=== PATIENT | female | born 1945 | race Hispanic/Latino ===

== ENCOUNTER 2022-06-28 11:12 | Emergency (ER) | payer MEDICARE, OTHER ==
[~2022-06-28] VITALS: Ht 142.2 cm; Wt 79.4 kg
[~2022-06-28 11:12] MED LIST: LEVAQUIN500 MG PO
[2022-06-28] MEDS ORDERED: DIPHENHYDRAMINE HCL INJ 50 MG/ML VIAL IV PRN (11:45)
[2022-06-28 12:04] LABS: BASOPHILS % 0.7 % (0.0-1.0); EOSINOPHILS # (AUTO) 0.1 (0.0-0.4); EOSINOPHILS % 1.7 % (0.0-6.0); HEMATOCRIT 29.8 % (34.2-44.1); HEMOGLOBIN 9.7 g/dL (12.0-16.0); LYMPHOCYTES # (AUTO) 1.5 (1.0-3.2); MEAN CORPUSCULAR HEMOGLOBIN 31.7 pg (28-32); MEAN CORPUSCULAR HGB CONC 32.6 g/dL (31-35); MEAN CORPUSCULAR VOLUME 97.4 fL (81-99); MONOCYTES # (AUTO) 0.4 (0.2-0.8); MONOCYTES % 6.4 % (4.4-11.3); NEUTROPHILS # (AUTO) 3.7 (2.1-6.9); NEUTROPHILS % 62.9 % (38.7-80.0); PLATELET COUNT 167 x10e3/uL (140-360); RED BLOOD COUNT 3.06 x10e6/uL (3.6-5.1); RED CELL DISTRIBUTION WIDTH 18.5 % (11.7-14.4)
[2022-06-28 12:20] LABS: ALBUMIN 2.9 g/dL (3.5-5.0); ALBUMIN/GLOBULIN RATIO 0.9 (0.8-2.0); ANION GAP 19.4 mmol/L (8-16); CALCIUM 8.3 mg/dL (8.4-10.2); CREATININE, SERUM 3.86 mg/dL (0.57-1.11); POTASSIUM 4.4 mmol/L (3.5-5.1)
== END 2022-06-28 16:00 | disposition home or self-care (01) ==
LOC: ER 11:29
DX: G24.01 Drug induced subacute dyskinesia (principal); I10 Essential (primary) hypertension; N32.81 Overactive bladder; Z20.822 Contact with and (suspected) exposure to COVID-19; Z96.651 Presence of right artificial knee joint
CPT/HCPCS: 36415; 70450; 80053; 83605; 84484; 85025; 87040; 93005; 99284; J1200; U0002

== ENCOUNTER 2022-07-18 10:59 | Inpatient (IN) | payer MEDICARE ==
[2022-07-18] VITALS (23 sets, daily range): BP systolic 116–172; BP diastolic 68–89
[~2022-07-18] VITALS: Ht 142.2 cm; Wt 46.8 kg
[2022-07-18 11:21] LABS: BASOPHILS % 0.1 % (0.0-1.0); HEMATOCRIT 26.8 % (34.2-44.1); HEMOGLOBIN 8.5 g/dL (12.0-16.0); LYMPHOCYTES # (AUTO) 0.4 (1.0-3.2); LYMPHOCYTES % 3.1 % (18.0-39.1); MEAN CORPUSCULAR HEMOGLOBIN 30.7 pg (28-32); MEAN CORPUSCULAR HGB CONC 31.7 g/dL (31-35); MEAN CORPUSCULAR VOLUME 96.8 fL (81-99); MONOCYTES # (AUTO) 0.6 (0.2-0.8); MONOCYTES % 4.2 % (4.4-11.3); NEUTROPHILS # (AUTO) 12.3 (2.1-6.9); NEUTROPHILS % 89.3 % (38.7-80.0); PLATELET COUNT 122 x10e3/uL (140-360); RED BLOOD COUNT 2.77 x10e6/uL (3.6-5.1); RED CELL DISTRIBUTION WIDTH 17.1 % (11.7-14.4)
[2022-07-18 11:48] LABS: ALANINE AMINOTRANSFERASE 15 IU/L (0-55); ALBUMIN 2.8 g/dL (3.5-5.0); ALKALINE PHOSPHATASE 169 IU/L (40-150); ANION GAP 25.5 mmol/L (8-16); CALCIUM 8.1 mg/dL (8.4-10.2); CHLORIDE 111 mmol/L (98-107); CREATININE, SERUM 5.75 mg/dL (0.57-1.11); GLUCOSE 75 mg/dL (74-118); POTASSIUM 5.5 mmol/L (3.5-5.1); SODIUM 138 mmol/L (136-145)
[2022-07-18 11:51] LABS: BLOOD UREA NITROGEN 173 mg/dL (7-26)
[2022-07-18 11:52] LABS: CARBON DIOXIDE 7 mmol/L (22-29)
[2022-07-18] MEDS ORDERED: SODIUM BICARBONATE 8.4% INJ 50 ML SYR IV STA (12:44)
[2022-07-18] MEDS ORDERED: ALBUTEROL SULF 0.083% NEB SOLN 3 ML NEB NEB STA (12:44)
[2022-07-18] MEDS ORDERED: DEXTROSE 50% SYRINGE 50 ML IV STA (12:44)
[2022-07-18] MEDS ORDERED: SOD POLYSTYRENE SULFONATE SUSP 15 GM/60 ML BTL PO ONE (12:45)
[2022-07-18] MEDS ORDERED: PIPERACILLIN/TAZOBACTAM 4.5 GM in SODIUM CHLORIDE 0.9% 100 ML IV STA (12:56)
[2022-07-18] MEDS ORDERED: CALCIUM GLUCONATE 10% INJ 13.95 MEQ in SODIUM CHLORIDE 0.9% 100 ML IV ONE (13:00)
[2022-07-18 13:17] LABS: ABG HCO3 8 mmol/L (22-26); ABG PCO2 20 mmHg (35-45); ABG PH 7.23 (7.35-7.45); ABG PO2 119 mmHg (80-105); ABG TCO2 9
[2022-07-18] MEDS ORDERED: INSULIN REGULAR, HUMAN 100 UNIT/1 ML IV ONE (13:30)
[2022-07-18] MEDS ORDERED: FUROSEMIDE INJ 10 MG/ML 4 ML VIAL IV ONE ×2 (13:30→16:30)
[2022-07-18 15:05] LABS: CLARITY,URINE TURBID (CLEAR); COLOR,URINE YELLOW (YELLOW)
[2022-07-18 15:06] LABS: KETONES,URINE NEGATIVE (NEGATIVE); LEUKOCYTE ESTERASE ,URINE SMALL (NEGATIVE); NITRITE,URINE NEGATIVE (NEGATIVE); PROTEIN,URINE DIPSTICK 2+ (NEGATIVE); URINE UROBILINOGEN 0.2 mg/dL (0.2 - 1)
[2022-07-18 15:07] LABS: BACTERIA,URINE MANY /HPF
[2022-07-18] MEDS ORDERED: SODIUM CHLORIDE 0.9% 1000ML 1,000 ML ONE (16:31)
[2022-07-18] MEDS ORDERED: SODIUM BICARBONATE 8.4% 150 ML in DEXTROSE 5% 1,000 ML IV ONE (17:00)
[2022-07-18] MEDS ORDERED: ZOLPIDEM TARTRATE 5 MG TAB PO PRN (17:00)
[2022-07-18] MEDS ORDERED: ONDANSETRON HCL INJ 2MG/ML 2ML 2 MG/ML VIAL IV PRN (17:00)
[2022-07-18] MEDS ORDERED: SODIUM CHLORIDE 0.9% 1000ML 1,000 ML IV PRN (18:30)
[2022-07-18] MEDS ORDERED: MANNITOL 25% 12.5GM/50 ML VIAL IV PRN (18:30)
[2022-07-18] MEDS ORDERED: HEPARIN SOD (PORCINE) 1000 UNIT/ML 10ML MDV IM ONE ×2 (18:30→19:00)
[2022-07-18] MEDS ORDERED: HEPARIN SOD (PORCINE) 1000 UNIT/ML SDV IV PRN (18:30)
[2022-07-18] MEDS ORDERED: MANNITOL 20% 500ML 500 ML IV ONE ×2 (19:18→20:45)
[2022-07-18] MEDS ORDERED: LEVOTHYROXINE50 MCG PO (20:16)
[2022-07-18] MEDS ORDERED: SODIUM BICARBO650 MG PO (20:16)
[2022-07-18] MEDS ORDERED: FUROSEMIDE40 MG PO (20:16)
[2022-07-18] MEDS ORDERED: OXYBUTYNIN CHLOR5 M1 PO (20:26)
[2022-07-18] MEDS ORDERED: FEROSUL325 MG PO (20:26)
[2022-07-18] MEDS ORDERED: METOPROLOL SUCC25 MG PO (20:26)
[2022-07-18] MEDS ORDERED: MYCOPHENOLATE250 MG PO ×2 (20:26)
[2022-07-18] MEDS ORDERED: B12 ACTIVE1000 MCG PO (20:26)
[2022-07-18] MEDS ORDERED: PREDNISONE20 MG PO (20:26)
[2022-07-18] MEDS ORDERED: HYDRALAZINE HCL25 MG PO ×2 (20:26)
[2022-07-18] MEDS ORDERED: NIFEDIPINE ER30 M1 PO (20:26)
[2022-07-18] MEDS ORDERED: HEPARIN SOD (PORCINE) 1000 UNIT/ML SDV ONE (20:56)
[2022-07-19] VITALS (29 sets, daily range): BP systolic 87–174; BP diastolic 51–88
[2022-07-19 05:02] LABS: BASOPHILS % 0.1 % (0.0-1.0); HEMATOCRIT 23.2 % (34.2-44.1); HEMOGLOBIN 7.8 g/dL (12.0-16.0); LYMPHOCYTES # (AUTO) 0.2 (1.0-3.2); LYMPHOCYTES % 1.3 % (18.0-39.1); MEAN CORPUSCULAR HGB CONC 33.6 g/dL (31-35); MONOCYTES # (AUTO) 0.3 (0.2-0.8); MONOCYTES % 2.3 % (4.4-11.3); NEUTROPHILS % 95.4 % (38.7-80.0); PLATELET COUNT 83 x10e3/uL (140-360); RED BLOOD COUNT 2.52 x10e6/uL (3.6-5.1); RED CELL DISTRIBUTION WIDTH 16.4 % (11.7-14.4)
[2022-07-19 05:07] LABS: MEAN CORPUSCULAR VOLUME 92.1 fL (81-99)
[2022-07-19 05:29] LABS: ANION GAP 22.7 mmol/L (8-16); CALCIUM 8.2 mg/dL (8.4-10.2); CREATININE, SERUM 4.03 mg/dL (0.57-1.11); POTASSIUM 3.7 mmol/L (3.5-5.1)
[2022-07-19] MEDS ORDERED: ALBUMIN 25% 12.5GM 0.25 GM/ML BTL IV PRN ×2 (19:30→20:30)
[2022-07-19] MEDS ORDERED: ALBUMIN 25% 12.5GM 0.25 GM/ML BTL IV ONE (19:30)
[2022-07-19] MEDS ORDERED: ALBUMIN 25% 12.5GM 50ML 50 ML IV ONE (19:45)
[2022-07-19] MEDS ORDERED: TRAZODONE HCL 50 MG TAB PO PRN (20:15)
[2022-07-20] VITALS (15 sets, daily range): BP systolic 105–140; BP diastolic 56–78
[2022-07-20 05:03] LABS: ANION GAP 19.1 mmol/L (8-16); CALCIUM 7.9 mg/dL (8.4-10.2); CREATININE, SERUM 2.16 mg/dL (0.57-1.11); POTASSIUM 3.1 mmol/L (3.5-5.1)
[2022-07-20] MEDS ORDERED: ALBUTEROL SULF 0.083% NEB SOLN 3 ML NEB NEB ONE (09:00)
[2022-07-20] MEDS: ACETAMINOPHEN 325 MG TAB PO PRN ×2 (09:41→23:16)
[2022-07-20] MEDS ORDERED: POTASSIUM CHLORIDE 20MEQ/100ML 100 ML IV ONE (11:00)
[2022-07-20] MEDS: ALBUTEROL SULF 0.083% NEB SOLN 3 ML NEB NEB PRN ×3 (12:10→19:40)
[2022-07-20] MEDS ORDERED: FUROSEMIDE 40 MG TAB PO ONE (16:00)
[2022-07-20] MEDS ORDERED: POTASSIUM CHLORIDE 20MEQ/15ML UDC PO ONE (16:00)
[2022-07-20] MEDS ORDERED: POTASSIUM CHLORIDE 20 MEQ TAB CR PO ONE (16:00)
[2022-07-20] MEDS ORDERED: FUROSEMIDE INJ 10 MG/ML 4 ML VIAL IV ONE (16:00)
[2022-07-20] MEDS ORDERED: KCL 20 MEQ PACKET/ ORAL SOLN PO ONE (16:15)
[2022-07-21] VITALS (24 sets, daily range): BP systolic 77–156; BP diastolic 47–94
[2022-07-21] MEDS: ALBUTEROL SULF 0.083% NEB SOLN 3 ML NEB NEB PRN ×6 (00:47→20:50)
[2022-07-21] MEDS: ACETAMINOPHEN 325 MG TAB PO PRN ×2 (06:42→22:28)
[2022-07-21 07:12] LABS: BASOPHILS % 0.2 % (0.0-1.0); EOSINOPHILS % 0.1 % (0.0-6.0); HEMATOCRIT 21.3 % (34.2-44.1); HEMOGLOBIN 6.5 g/dL (12.0-16.0); LYMPHOCYTES # (AUTO) 0.3 (1.0-3.2); LYMPHOCYTES % 3.1 % (18.0-39.1); MEAN CORPUSCULAR HEMOGLOBIN 30.5 pg (28-32); MEAN CORPUSCULAR HGB CONC 30.5 g/dL (31-35); MONOCYTES # (AUTO) 0.2 (0.2-0.8); MONOCYTES % 1.9 % (4.4-11.3); NEUTROPHILS # (AUTO) 10.4 (2.1-6.9); NEUTROPHILS % 93.3 % (38.7-80.0); PLATELET COUNT 44 x10e3/uL (140-360); RED BLOOD COUNT 2.13 x10e6/uL (3.6-5.1); RED CELL DISTRIBUTION WIDTH 17.5 % (11.7-14.4)
[2022-07-21 07:34] LABS: ALBUMIN 2.6 g/dL (3.5-5.0); ALBUMIN/GLOBULIN RATIO 1.3 (0.8-2.0); ANION GAP 24.2 mmol/L (8-16); CALCIUM 8.4 mg/dL (8.4-10.2); CREATININE, SERUM 3.03 mg/dL (0.57-1.11); POTASSIUM 4.2 mmol/L (3.5-5.1)
[2022-07-21] MEDS ORDERED: ACETAMINOPHEN 325 MG TAB PO PRN (09:19)
[2022-07-21] MEDS ORDERED: SODIUM CHLORIDE 0.9% 250ML 250 ML IV ONE (09:55)
[2022-07-21] MEDS: FUROSEMIDE 40 MG TAB PO SCH (09:58)
[2022-07-21] MEDS: POTASSIUM CHLORIDE 20 MEQ TAB CR PO SCH (09:59)
[2022-07-21] MEDS: FLUCONAZOLE 200 MG/100 ML 100 ML IV SCH (10:48)
[2022-07-21] MEDS ORDERED: HEPARIN SOD (PORCINE) 1000 UNIT/ML SDV IV PRN (15:15)
[2022-07-21] MEDS ORDERED: SODIUM CHLORIDE 0.9% 1000ML 2,000 ML IV PRN (15:15)
[2022-07-21] MEDS ORDERED: SODIUM CHLORIDE 0.9% 250ML 250 ML ONE (15:57)
[2022-07-22] VITALS (39 sets, daily range): BP systolic 93–152; BP diastolic 50–92
[2022-07-22] MEDS: ALBUTEROL SULF 0.083% NEB SOLN 3 ML NEB NEB PRN ×2 (05:22→19:18)
[2022-07-22 07:50] LABS: BASOPHILS % 0.1 % (0.0-1.0); EOSINOPHILS % 0.3 % (0.0-6.0); HEMOGLOBIN 8.9 g/dL (12.0-16.0); LYMPHOCYTES # (AUTO) 0.6 (1.0-3.2); LYMPHOCYTES % 5.1 % (18.0-39.1); MONOCYTES # (AUTO) 0.2 (0.2-0.8); NEUTROPHILS # (AUTO) 9.8 (2.1-6.9); NEUTROPHILS % 91.2 % (38.7-80.0); RED BLOOD COUNT 2.97 x10e6/uL (3.6-5.1)
[2022-07-22 07:59] LABS: MEAN CORPUSCULAR VOLUME 90.9 fL (81-99); PLATELET COUNT 22 x10e3/uL (140-360)
[2022-07-22 08:03] LABS: INR 1.42; PROTHROMBIN TIME 17.9 seconds (11.9-14.5)
[2022-07-22 08:13] LABS: ALBUMIN 2.8 g/dL (3.5-5.0); ALBUMIN/GLOBULIN RATIO 1.6 (0.8-2.0); ANION GAP 17.2 mmol/L (8-16); CALCIUM 8.1 mg/dL (8.4-10.2); CREATININE, SERUM 1.7 mg/dL (0.57-1.11); MAGNESIUM 1.7 MG/DL (1.3-2.1); POTASSIUM 3.2 mmol/L (3.5-5.1)
[2022-07-22] MEDS ORDERED: MAALOX/LIDOCAINE/BENADRYL/NYST 30 ML BTL PO PRN (08:45)
[2022-07-22 09:44] LABS: PHOSPHORUS 1.7 MG/DL (2.3-4.7)
[2022-07-22] MEDS ORDERED: ZOLPIDEM TARTRATE 5 MG TAB PO PRN (09:45)
[2022-07-22] MEDS: FLUCONAZOLE 200 MG/100 ML 100 ML IV SCH (09:47)
[2022-07-22] MEDS: FUROSEMIDE 40 MG TAB PO SCH (09:47)
[2022-07-22] MEDS: POTASSIUM CHLORIDE 20 MEQ TAB CR PO SCH (09:47)
[2022-07-22] MEDS ORDERED: LORAZEPAM 0.5 MG TAB PO ONE (10:00)
[2022-07-22] MEDS: TRAZODONE HCL 50 MG TAB PO SCH (21:10)
[2022-07-23] VITALS (30 sets, daily range): BP systolic 109–155; BP diastolic 57–99
[2022-07-23] MEDS: POTASSIUM CHLORIDE 20 MEQ TAB CR PO SCH (10:20)
[2022-07-23] MEDS: FLUCONAZOLE 200 MG/100 ML 100 ML IV SCH (10:20)
[2022-07-23] MEDS: FUROSEMIDE 40 MG TAB PO SCH (10:20)
[2022-07-23 10:54] LABS: ANION GAP 20.1 mmol/L (8-16); CALCIUM 8.5 mg/dL (8.4-10.2); CREATININE, SERUM 2.72 mg/dL (0.57-1.11); POTASSIUM 4.1 mmol/L (3.5-5.1)
[2022-07-23] MEDS ORDERED: LIDOCAINE HCL 1% LOCAL INJ 20 ML VIAL ONE (14:35)
[2022-07-23] MEDS ORDERED: SODIUM CHLORIDE 0.9% 250ML 250 ML ONE ×2 (14:35→15:36)
[2022-07-23] MEDS ORDERED: MIDAZOLAM HCL 2 MG/2 ML VIAL ONE (15:35)
[2022-07-23] MEDS ORDERED: FENTANYL CITRATE/PF 100MCG/2 ML INJ ONE (15:35)
[2022-07-23] MEDS ORDERED: MAGNESIUM SULFATE 2GM/50ML 50 ML IV ONE (15:45)
[2022-07-23] MEDS ORDERED: HEPARIN SOD (PORCINE) 1000 UNIT/ML SDV ONE (15:50)
[2022-07-23] MEDS ORDERED: SODIUM PHOSPHATE IN 0.9 % NACL 15 MMOL in SODIUM CHLORIDE 0.9% 250ML 250 ML IV ONE ×2 (16:00)
[2022-07-23] MEDS ORDERED: POTASSIUM PHOSPHATE 15 MM in SODIUM CHLORIDE 0.9% 250ML 250 ML IV ONE (21:00)
[2022-07-23] MEDS: TRAZODONE HCL 50 MG TAB PO SCH (21:09)
[2022-07-24] VITALS (38 sets, daily range): BP systolic 98–149; BP diastolic 59–95
[2022-07-24 06:25] LABS: BASOPHILS % 0.1 % (0.0-1.0); EOSINOPHILS % 0.1 % (0.0-6.0); HEMATOCRIT 28.8 % (34.2-44.1); HEMOGLOBIN 9.4 g/dL (12.0-16.0); LYMPHOCYTES # (AUTO) 0.4 (1.0-3.2); LYMPHOCYTES % 4.7 % (18.0-39.1); MEAN CORPUSCULAR HEMOGLOBIN 30.4 pg (28-32); MEAN CORPUSCULAR HGB CONC 32.6 g/dL (31-35); MEAN CORPUSCULAR VOLUME 93.2 fL (81-99); MONOCYTES # (AUTO) 0.2 (0.2-0.8); MONOCYTES % 2.3 % (4.4-11.3); NEUTROPHILS # (AUTO) 7.1 (2.1-6.9); NEUTROPHILS % 91.3 % (38.7-80.0); RED BLOOD COUNT 3.09 x10e6/uL (3.6-5.1); RED CELL DISTRIBUTION WIDTH 20.3 % (11.7-14.4)
[2022-07-24 06:35] LABS: ALBUMIN 2.3 g/dL (3.5-5.0); ALBUMIN/GLOBULIN RATIO 1.1 (0.8-2.0); ANION GAP 20.3 mmol/L (8-16); CREATININE, SERUM 3.2 mg/dL (0.57-1.11); POTASSIUM 5.3 mmol/L (3.5-5.1)
[2022-07-24 06:36] LABS: PLATELET COUNT 16 x10e3/uL (140-360)
[2022-07-24] MEDS: POTASSIUM CHLORIDE 20 MEQ TAB CR PO SCH (09:00)
[2022-07-24] MEDS: FUROSEMIDE 40 MG TAB PO SCH (09:05)
[2022-07-24] MEDS ORDERED: HEPARIN SOD (PORCINE) 1000 UNIT/ML SDV IV PRN (13:15)
[2022-07-24] MEDS: TRAZODONE HCL 50 MG TAB PO SCH (21:31)
[2022-07-25] VITALS (16 sets, daily range): BP systolic 130–154; BP diastolic 72–90
[2022-07-25] MEDS: POTASSIUM CHLORIDE 20 MEQ TAB CR PO SCH (08:05)
[2022-07-25] MEDS: FUROSEMIDE 40 MG TAB PO SCH ×3 (08:06→08:16)
[2022-07-25 09:19] LABS: BASOPHILS % 0.1 % (0.0-1.0); EOSINOPHILS % 0.3 % (0.0-6.0); HEMATOCRIT 26.9 % (34.2-44.1); HEMOGLOBIN 8.6 g/dL (12.0-16.0); LYMPHOCYTES # (AUTO) 0.3 (1.0-3.2); LYMPHOCYTES % 4.3 % (18.0-39.1); MEAN CORPUSCULAR HEMOGLOBIN 30.2 pg (28-32); MEAN CORPUSCULAR VOLUME 94.4 fL (81-99); MONOCYTES # (AUTO) 0.2 (0.2-0.8); MONOCYTES % 2.7 % (4.4-11.3); NEUTROPHILS # (AUTO) 6.5 (2.1-6.9); NEUTROPHILS % 91.2 % (38.7-80.0); RED BLOOD COUNT 2.85 x10e6/uL (3.6-5.1); RED CELL DISTRIBUTION WIDTH 20.8 % (11.7-14.4)
[2022-07-25 09:29] LABS: PLATELET COUNT 14 x10e3/uL (140-360)
[2022-07-25 09:38] LABS: ALBUMIN 2.4 g/dL (3.5-5.0); ALBUMIN/GLOBULIN RATIO 1.1 (0.8-2.0); ANION GAP 18.9 mmol/L (8-16); CALCIUM 7.9 mg/dL (8.4-10.2); CREATININE, SERUM 1.97 mg/dL (0.57-1.11); POTASSIUM 3.9 mmol/L (3.5-5.1)
[2022-07-25] MEDS: DEXTROSE 50% SYRINGE 50 ML IV PRN (09:52)
[2022-07-25] MEDS ORDERED: SODIUM CHLORIDE 0.9% 250ML 250 ML ONE (13:13)
[2022-07-25] MEDS: TRAZODONE HCL 50 MG TAB PO SCH (21:00)
[2022-07-26] VITALS (38 sets, daily range): BP systolic 123–164; BP diastolic 68–103
[2022-07-26] MEDS: ACETAMINOPHEN 325 MG TAB PO PRN (03:52)
[2022-07-26] MEDS ORDERED: ACETAMINOPHEN 650 MG SUPP PR PRN (04:15)
[2022-07-26 06:19] LABS: BASOPHILS % 0.2 % (0.0-1.0); HEMATOCRIT 24.7 % (34.2-44.1); HEMOGLOBIN 7.7 g/dL (12.0-16.0); LYMPHOCYTES # (AUTO) 0.3 (1.0-3.2); LYMPHOCYTES % 4.4 % (18.0-39.1); MEAN CORPUSCULAR HEMOGLOBIN 29.7 pg (28-32); MEAN CORPUSCULAR HGB CONC 31.2 g/dL (31-35); MEAN CORPUSCULAR VOLUME 95.4 fL (81-99); MONOCYTES # (AUTO) 0.2 (0.2-0.8); MONOCYTES % 3.2 % (4.4-11.3); NEUTROPHILS # (AUTO) 5.9 (2.1-6.9); NEUTROPHILS % 90.8 % (38.7-80.0); PLATELET COUNT 62 x10e3/uL (140-360); RED BLOOD COUNT 2.59 x10e6/uL (3.6-5.1); RED CELL DISTRIBUTION WIDTH 21.2 % (11.7-14.4)
[2022-07-26 06:41] LABS: ANION GAP 19.1 mmol/L (8-16); POTASSIUM 4.1 mmol/L (3.5-5.1)
[2022-07-26 06:42] LABS: ALBUMIN 2.4 g/dL (3.5-5.0); ALBUMIN/GLOBULIN RATIO 1.2 (0.8-2.0); CALCIUM 8.3 mg/dL (8.4-10.2); CREATININE, SERUM 2.7 mg/dL (0.57-1.11)
[2022-07-26] MEDS ORDERED: FUROSEMIDE INJ 10 MG/ML 4 ML VIAL IV SCH (09:00)
[2022-07-26] MEDS ORDERED: DEXTROSE 10% 1,000 ML IV ONE (09:45)
[2022-07-26 16:55] LABS: ABG HCO3 29 mmol/L (22-26); ABG PCO2 45 mmHg (35-45); ABG PH 7.41 (7.35-7.45); ABG PO2 74 mmHg (80-105); ABG TCO2 30
[2022-07-27] VITALS (39 sets, daily range): BP systolic 94–155; BP diastolic 55–82
[2022-07-27 06:47] LABS: BASOPHILS % 0.2 % (0.0-1.0); EOSINOPHILS # (AUTO) 0.1 (0.0-0.4); EOSINOPHILS % 0.9 % (0.0-6.0); HEMATOCRIT 25.2 % (34.2-44.1); LYMPHOCYTES # (AUTO) 0.5 (1.0-3.2); LYMPHOCYTES % 7.9 % (18.0-39.1); MEAN CORPUSCULAR HEMOGLOBIN 30.5 pg (28-32); MEAN CORPUSCULAR HGB CONC 31.7 g/dL (31-35); MEAN CORPUSCULAR VOLUME 96.2 fL (81-99); MONOCYTES # (AUTO) 0.3 (0.2-0.8); MONOCYTES % 4.5 % (4.4-11.3); NEUTROPHILS # (AUTO) 5.5 (2.1-6.9); NEUTROPHILS % 85.7 % (38.7-80.0); RED BLOOD COUNT 2.62 x10e6/uL (3.6-5.1); RED CELL DISTRIBUTION WIDTH 21.5 % (11.7-14.4)
[2022-07-27 06:53] LABS: PLATELET COUNT 42 x10e3/uL (140-360)
[2022-07-27 07:13] LABS: ALBUMIN 2.1 g/dL (3.5-5.0); ANION GAP 17.8 mmol/L (8-16); CALCIUM 8.1 mg/dL (8.4-10.2); CREATININE, SERUM 3.22 mg/dL (0.57-1.11); POTASSIUM 3.8 mmol/L (3.5-5.1)
[2022-07-27] MEDS ORDERED: IOPAMIDOL 370 MG/ML 100 ML INFUS..BTL INJ ONE (09:15)
[2022-07-27] MEDS: ALBUTEROL SULF 0.083% NEB SOLN 3 ML NEB NEB PRN ×2 (18:10→22:11)
[2022-07-28] VITALS (17 sets, daily range): BP systolic 100–147; BP diastolic 52–98
[2022-07-28 07:02] LABS: ANION GAP 14.4 mmol/L (8-16); CREATININE, SERUM 1.98 mg/dL (0.57-1.11); MAGNESIUM 1.7 MG/DL (1.3-2.1); PHOSPHORUS 2.8 MG/DL (2.3-4.7); POTASSIUM 3.4 mmol/L (3.5-5.1)
[2022-07-28] MEDS ORDERED: FUROSEMIDE 40 MG TAB PO SCH (09:00)
[2022-07-28] MEDS ORDERED: POTASSIUM CHLORIDE 20 MEQ TAB CR PO ONE (18:00)
[2022-07-29 04:34] VITALS: BP 149/76
[2022-07-29 06:17] LABS: BASOPHILS % 0.2 % (0.0-1.0); EOSINOPHILS # (AUTO) 0.1 (0.0-0.4); EOSINOPHILS % 0.9 % (0.0-6.0); HEMATOCRIT 27.3 % (34.2-44.1); HEMOGLOBIN 8.4 g/dL (12.0-16.0); LYMPHOCYTES # (AUTO) 0.7 (1.0-3.2); LYMPHOCYTES % 13.9 % (18.0-39.1); MEAN CORPUSCULAR HEMOGLOBIN 30.9 pg (28-32); MEAN CORPUSCULAR HGB CONC 30.8 g/dL (31-35); MONOCYTES # (AUTO) 0.3 (0.2-0.8); MONOCYTES % 6.2 % (4.4-11.3); NEUTROPHILS # (AUTO) 4.2 (2.1-6.9); NEUTROPHILS % 77.9 % (38.7-80.0); PLATELET COUNT 31 x10e3/uL (140-360); RED BLOOD COUNT 2.72 x10e6/uL (3.6-5.1); RED CELL DISTRIBUTION WIDTH 23.3 % (11.7-14.4)
[2022-07-29 06:18] LABS: MEAN CORPUSCULAR VOLUME 100.4 fL (81-99)
[2022-07-29 06:25] LABS: CALCIUM 8.2 mg/dL (8.4-10.2); CREATININE, SERUM 2.68 mg/dL (0.57-1.11)
[2022-07-29] MEDS: DEXTROSE 50% SYRINGE 50 ML IV PRN (06:42)
[2022-07-29 06:48] LABS: MAGNESIUM 1.8 MG/DL (1.3-2.1); PHOSPHORUS 3.4 MG/DL (2.3-4.7)
[2022-07-29 07:29] LABS: ANISOCYTOSIS MARKED; PLATELET ESTIMATE MARKEDLY DECREASED; PLATELET MORPHOLOGY COMMENT NORMAL; RBC MORPHOLOGY COMMENT ABNORMAL
[2022-07-29 08:05] VITALS: BP 141/76
[2022-07-29] MEDS: MECOBALAMIN 1000 MCG PO SCH (09:00)
[2022-07-29] MEDS: LEVOTHYROXINE SODIUM 50 MCG TAB PO SCH (09:56)
[2022-07-29] MEDS: SODIUM BICARBONATE 650 MG TAB PO SCH ×2 (09:57→17:51)
[2022-07-29] MEDS: OXYBUTYNIN CHLORIDE XL 5 MG TAB PO SCH (09:57)
[2022-07-29] MEDS: METOPROLOL TARTRATE 25 MG TAB PO SCH ×2 (09:57→17:51)
[2022-07-29 12:48] VITALS: BP 121/70
[2022-07-29] MEDS ORDERED: HEPARIN SOD (PORCINE) 1000 UNIT/ML SDV IV PRN (13:00)
[2022-07-29] MEDS ORDERED: ALBUMIN 25% 12.5GM 0.25 GM/ML BTL IV PRN (13:00)
[2022-07-29 16:34] VITALS: BP 123/61
[2022-07-29] MEDS ORDERED: MAGNESIUM OXIDE 400 MG TAB PO ONE (18:00)
[2022-07-29 20:00] VITALS: BP 123/61
[2022-07-30] MEDS: LEVOTHYROXINE SODIUM 50 MCG TAB PO SCH (06:28)
[2022-07-30 08:31] VITALS: BP 140/66
[2022-07-30] MEDS: OXYBUTYNIN CHLORIDE XL 5 MG TAB PO SCH (09:00)
[2022-07-30] MEDS: SODIUM BICARBONATE 650 MG TAB PO SCH ×2 (09:00→21:41)
[2022-07-30] MEDS: METOPROLOL TARTRATE 25 MG TAB PO SCH ×3 (09:00→21:42)
[2022-07-30] MEDS: MECOBALAMIN 1000 MCG PO SCH (09:00)
[2022-07-30 11:28] VITALS: BP 140/66
[2022-07-30 12:07] VITALS: BP 153/74
[2022-07-30 16:47] VITALS: BP 140/75
[2022-07-30 19:40] VITALS: BP 119/81
[2022-07-30 20:00] VITALS: BP 119/81
[2022-07-30] MEDS: BALSAM PERU/CASTOR OIL 60 GM OINT...G. TP SCH (21:42)
[2022-07-31] VITALS (16 sets, daily range): BP systolic 109–156; BP diastolic 53–104
[2022-07-31] MEDS ORDERED: HEPATITIS B VACCINE IM ONE ×2 (01:15→20:00)
[2022-07-31] MEDS: LEVOTHYROXINE SODIUM 50 MCG TAB PO SCH (06:07)
[2022-07-31] MEDS: OXYBUTYNIN CHLORIDE XL 5 MG TAB PO SCH (09:00)
[2022-07-31] MEDS: METOPROLOL TARTRATE 25 MG TAB PO SCH ×2 (09:00→21:15)
[2022-07-31] MEDS: SODIUM BICARBONATE 650 MG TAB PO SCH ×2 (09:00→21:15)
[2022-07-31] MEDS ORDERED: BALSAM PERU/CASTOR OIL 60 GM OINT...G. TP SCH (09:00)
[2022-07-31] MEDS: MECOBALAMIN 1000 MCG PO SCH (09:00)
[2022-07-31 09:34] LABS: ALBUMIN 2.4 g/dL (3.5-5.0); ALBUMIN/GLOBULIN RATIO 1.2 (0.8-2.0); ANION GAP 14.3 mmol/L (8-16); CALCIUM 8.2 mg/dL (8.4-10.2); CREATININE, SERUM 2.49 mg/dL (0.57-1.11); POTASSIUM 3.3 mmol/L (3.5-5.1)
[2022-07-31 11:34] LABS: ANION GAP 15.6 mmol/L (8-16); CALCIUM 8.5 mg/dL (8.4-10.2); CREATININE, SERUM 2.53 mg/dL (0.57-1.11); POTASSIUM 3.6 mmol/L (3.5-5.1)
[2022-07-31] MEDS ORDERED: ALBUMIN 25% 12.5GM 0.25 GM/ML BTL IV PRN (13:00)
[2022-07-31] MEDS: ALBUTEROL SULF 0.083% NEB SOLN 3 ML NEB NEB PRN (16:50)
[2022-07-31] MEDS ORDERED: METHYLPREDNISOLONE SOD SUCC 125 MG/2ML VIAL IV ONE (19:15)
[2022-07-31 20:25] LABS: ABG PCO2 39 mmHg (35-45); ABG PH 7.44 (7.35-7.45); ABG PO2 86 mmHg (80-105)
[2022-07-31 20:26] LABS: ABG HCO3 27 mmol/L (22-26); ABG TCO2 28
[2022-07-31] MEDS: BALSAM PERU/CASTOR OIL 60 GM OINT...G. TP SCH (21:00)
[2022-08-01] VITALS (59 sets, daily range): BP systolic 79–135; BP diastolic 42–76
[2022-08-01] MEDS: LEVOTHYROXINE SODIUM 50 MCG TAB PO SCH (06:44)
[2022-08-01] MEDS: SODIUM BICARBONATE 650 MG TAB PO SCH ×3 (09:00→20:29)
[2022-08-01] MEDS: METOPROLOL TARTRATE 25 MG TAB PO SCH ×2 (09:00→20:28)
[2022-08-01] MEDS: OXYBUTYNIN CHLORIDE XL 5 MG TAB PO SCH ×2 (09:00→09:35)
[2022-08-01] MEDS: MECOBALAMIN 1000 MCG PO SCH (09:00)
[2022-08-01] MEDS ORDERED: ALBUMIN 25% 25GM 100ML 0.25 GM/ML BTL IV ONE (11:30)
[2022-08-01] MEDS ORDERED: LORAZEPAM INJ 2 MG/ML VIAL ONE (14:07)
[2022-08-01] MEDS ORDERED: LORAZEPAM INJ 2 MG/ML VIAL IV ONE (14:30)
[2022-08-01] MEDS: BALSAM PERU/CASTOR OIL 60 GM OINT...G. TP SCH (20:29)
[2022-08-02] VITALS (16 sets, daily range): BP systolic 99–157; BP diastolic 49–76
[2022-08-02] MEDS: LEVOTHYROXINE SODIUM 50 MCG TAB PO SCH (06:00)
[2022-08-02] MEDS: OXYBUTYNIN CHLORIDE XL 5 MG TAB PO SCH (08:07)
[2022-08-02] MEDS: METOPROLOL TARTRATE 25 MG TAB PO SCH ×2 (08:07→21:00)
[2022-08-02] MEDS: SODIUM BICARBONATE 650 MG TAB PO SCH ×2 (08:07→21:00)
[2022-08-02] MEDS: MECOBALAMIN 1000 MCG PO SCH (08:07)
[2022-08-02] MEDS: BALSAM PERU/CASTOR OIL 60 GM OINT...G. TP SCH (21:00)
[2022-08-03 01:53] VITALS: BP 136/72
[2022-08-03] MEDS: LEVOTHYROXINE SODIUM 50 MCG TAB PO SCH (05:12)
[2022-08-03 06:13] VITALS: BP 157/89
[2022-08-03 08:00] VITALS: BP 145/76
[2022-08-03 08:52] VITALS: BP 145/76
[2022-08-03] MEDS: OXYBUTYNIN CHLORIDE XL 5 MG TAB PO SCH (09:00)
[2022-08-03] MEDS: SODIUM BICARBONATE 650 MG TAB PO SCH (09:00)
[2022-08-03] MEDS: MECOBALAMIN 1000 MCG PO SCH (09:00)
[2022-08-03] MEDS: METOPROLOL TARTRATE 25 MG TAB PO SCH (09:00)
[2022-08-03 13:23] VITALS: BP 141/86
== END 2022-08-03 15:25 | disposition hospice, home (50) | DRG 871 ==
LOC: ER 11:15 → ERHOLD 12:59 → ICU 15:04 → MED/SURG 07-28 14:57 → ICU 07-31 19:22 → MED/SURG 08-02 22:21
PROVIDERS: ADMIT Internal Medicine; ATTEND Internal Medicine
PROC: 5A1D70Z Performance of Urinary Filtration, Intermittent, Less than 6 Hours Per Day (ICD-10-PCS; principal; 2022-07-18)
PROC: 30243N1 Transfusion of Nonautologous Red Blood Cells into Central Vein, Percutaneous Approach (ICD-10-PCS; 2022-07-21)
PROC: 30243R1 Transfusion of Nonautologous Platelets into Central Vein, Percutaneous Approach (ICD-10-PCS; 2022-07-25)
PROC: 0JH63XZ Insertion of Tunneled Vascular Access Device into Chest Subcutaneous Tissue and Fascia, Percutaneous Approach (ICD-10-PCS; 2022-07-27)
PROC: 02HV33Z Insertion of Infusion Device into Superior Vena Cava, Percutaneous Approach (ICD-10-PCS; 2022-07-27)
DX: A41.9 Sepsis, unspecified organism (principal); G93.41 Metabolic encephalopathy; I50.43 Acute on chronic combined systolic (congestive) and diastolic (congestive) heart failure; J69.0 Pneumonitis due to inhalation of food and vomit; N18.6 End stage renal disease; J96.21 Acute and chronic respiratory failure with hypoxia; N39.0 Urinary tract infection, site not specified; I13.2 Hypertensive heart and chronic kidney disease with heart failure and with stage 5 chronic kidney disease, or end stage renal disease; N17.9 Acute kidney failure, unspecified; E87.20 Acidosis, unspecified; K76.6 Portal hypertension; R65.20 Severe sepsis without septic shock; K74.60 Unspecified cirrhosis of liver; R16.0 Hepatomegaly, not elsewhere classified; D64.9 Anemia, unspecified; M35.00 Sjogren syndrome, unspecified; D69.59 Other secondary thrombocytopenia; Z99.2 Dependence on renal dialysis; D69.6 Thrombocytopenia, unspecified; E87.5 Hyperkalemia; E83.42 Hypomagnesemia; K75.81 Nonalcoholic steatohepatitis (NASH); E87.6 Hypokalemia
CPT/HCPCS: 36415; 36558; 36600; 51700; 71045; 71250; 74178; 74230; 74470; 76937; 77001; 80048; 80053; 81001; 82105; 82140; 82378; 82805; 82948; 83605; 83735; 83880; 84100; 84145; 84484; 85025; 85610; 86704; 86706; 86850; 86900; 86920; 87040; 87340; 87350; 90740; 90962; 93005; 93306; 94640; 94660; 94799; 99252; 99285; C1769; C1892; J0612; J0690; J1450; J1644; J1940; J2001; J2060; J2250; J2405; J2543; J2930; J3475; J3480; J7030; J7050; J7070; J7799; P9016; P9034; Q9967